=== PATIENT | male | born 1965 | race Caucasian/White ===

== ENCOUNTER 2018-06-21 07:09 | Day surgery (SDC) | payer BC ==
--- NOTE | 2018-06-20 10:04 | PCM.PREANE ---
<Shraddha Merino - Last Filed: 06/20/18 10:00> Preanesthetic Assessment - Anesthesia/Transfusion/Family Hx Anesthesia History: No Prior Anesthesia Family History of Anesthesia Reaction: No Transfusion History: No Prior Transfusion(s) Intubation History: Unknown - Review of Systems Other: Reports: None (Hemochromoatosis- last saw hematology and IM in 2014) - Physical Assessment NPO Status Date: 06/20/18 Vital Signs: Last Vital Signs Temp 98.1 F 06/21/18 07:15 Pulse 61 06/21/18 07:15 Resp 16 06/21/18 07:15 BP 141/78 H 06/21/18 07:15 Pulse Ox 96 06/21/18 07:15 Height: 5 ft 8 in Mental Status: Alert & Oriented x3 - Lab Values: Laboratory Last Values MRSA (PCR) Negative 06/14/18 12:51 All lab values reviewed and noted and within acceptable ranges to proceed with scheduled procedure. Elevated liver enzymes and elevated ferritin noted. - Imaging/EKG Impressions: CXR: negative EKG: - Anesthesia Plan Pre-Op Medication Ordered: None - Acknowledgements Anesthesia Type Planned: General Anesthesia Pt an Appropriate Candidate for the Planned Anesthesia: Yes Alternatives and Risks of Anesthesia Discussed w Pt/Guardian: Yes Pt/Guardian Understands and Agrees with Anesthesia Plan: Yes PreAnesthesia Questionnaire - CURRENT (IN HOUSE) MEDS Current Meds: Current Medications Lactated Ringer's (Ringers, Lactated) 1,000 mls @ 125 mls/hr IV ASDIRECTED JOSE ALFREDO Stop: 06/21/18 23:00 Last Admin: 06/21/18 07:56 Dose: 125 mls/hr Lidocaine/Sodium Bicarbonate (Buffered Lidocaine 1% In Ns 8.4%) 0.25 ml IDERM ONETIME PRN PRN Reason: Prior to IV Start Stop: 06/21/18 18:00 Last Admin: 06/21/18 07:56 Dose: 0.25 ml Sodium Chloride (Saline Flush) 10 ml FLUSH ASDIRECTED PRN PRN Reason: Keep Vein Open Stop: 06/21/18 18:00 Discontinued Medications Epinephrine HCl (Adrenalin) 3 mg .XX ONETIME ONE Stop: 06/21/18 08:01 Fentanyl (Sublimaze) Confirm Administered Dose 250 mcg .ROUTE .STK-MED ONE Stop: 06/21/18 06:32 Lidocaine HCl (Xylocaine-Mpf 1%) Confirm Administered Dose 4 ml .ROUTE .STK-MED ONE Stop: 06/21/18 06:32 Midazolam HCl (Versed 1 Mg/Ml) Confirm Administered Dose 2 mg .ROUTE .STK-MED ONE Stop: 06/21/18 06:32 Ondansetron HCl (Zofran) Confirm Administered Dose 4 mg .ROUTE .STK-MED ONE Stop: 06/21/18 06:32 Propofol (Diprivan 20 Ml) Confirm Administered Dose 200 mg .ROUTE .STK-MED ONE Stop: 06/21/18 06:32 <Hanna Gustafson M - Last Filed: 06/21/18 08:16> Preanesthetic Assessment - Procedure Proposed Procedure: right kva - Anesthesia/Transfusion/Family Hx Anesthesia History: No Prior Anesthesia Family History of Anesthesia Reaction: No Transfusion History: No Prior Transfusion(s) - Review of Systems General: No Symptoms Pulmonary: No Symptoms Cardiovascular: No Symptoms Gastrointestinal: No Symptoms Neurological: No Symptoms, Difficulty Walking (knee pain) Other: Reports: Liver Problems (high enzymes) - Physical Assessment NPO Status Time: 23:55 Pulse: 61 O2 Sat by Pulse Oximetry: 96 Respiratory Rate: 16 Blood Pressure: 141/78 Weight: 102 kg ASA Class: 2 Mental Status: Alert & Oriented x3 Airway Class: Mallampati = 1 Dentition: Reports: Normal Dentition Thyro-Mental Finger Breadths: 3 Mouth Opening Finger Breadths: 3 ROM/Head Extension: Full Lungs: Clear to Auscultation, Normal Respiratory Effort Cardiovascular: Regular Rate, Regular Rhythm - Imaging/EKG Impressions: EKG -SR rate 59- probable left atrial enlargement - Blood Blood Available: No - Anesthesia Plan Pre-Op Medication Ordered: None - Acknowledgements Anesthesia Type Planned: General Anesthesia Pt an Appropriate Candidate for the Planned Anesthesia: Yes Alternatives and Risks of Anesthesia Discussed w Pt/Guardian: Yes Pt/Guardian Understands and Agrees with Anesthesia Plan: Yes PreAnesthesia Questionnaire Cardiovascular History: Reports: None Respiratory History: Reports: None Gastrointestinal History: Reports: None Musculoskeletal History: Reports: None Neurological History: Reports: None Psychiatric History: Reports: None Hematologic History: Reports: Hemochromatosis Oncologic (Cancer) History: Reports: None - History Comment History Comment: [place]- over 2 weeks ago last one - SUBSTANCE USE Smoking Status *Q: Never Smoker Tobacco Use Within Last Twelve Months: No Second Hand Smoke Exposure: No Days Per Week of Alcohol Use: 1 (rare) Recreational Drug Use History: No
[~2018-06-21 07:09] MED LIST: Lactated Ringers 1,000 ML IV SCH; Lidocaine 1% PF 2 ML SDV ONE; Lidocaine 1%/Sod Bicarbonate in NS 8.4% 1 ML Syringe IDERM PRN; Midazolam 1 MG/ML 2 ML SDV ONE; Ondansetron 4 MG/2 ML SDV ONE; Propofol 200 MG/20 ML SDV ONE; Sodium Chloride 0.9% 10 ML Syringe FLUSH PRN; fentaNYL 250 MCG/5 ML SDV ONE
[2018-06-21] MEDS ORDERED: EPINEPHrine 1 MG/ML 30 ML MDV ONE (08:00)
[2018-06-21] MEDS ORDERED: Bupivacaine 0.25% 30 ML SDV ONE (08:11)
[2018-06-21] MEDS ORDERED: ceFAZolin 1 GM Vial ONE (08:18)
[2018-06-21] MEDS ORDERED: Dexamethasone 4 MG/ML 5 ML MDV ONE (08:29)
[2018-06-21] MEDS ORDERED: ePHEDrine/Normal Saline 25 MG/5 ML Syringe ONE (08:34)
[2018-06-21] MEDS ORDERED: Ondansetron 4 MG/2 ML SDV IVPUSH PRN (08:36)
[2018-06-21] MEDS ORDERED: fentaNYL 100 MCG/2 ML SDV IVPUSH PRN (08:36)
[2018-06-21] MEDS ORDERED: HYDROmorphone 0.5 MG/0.5 ML Syringe IVPUSH PRN (08:36)
[2018-06-21] MEDS ORDERED: Lactated Ringers 1,000 ML ONE (08:46)
--- NOTE | 2018-06-21 09:28 | PCM.POSTAN ---
POST ANESTHESIA ASSESSMENT - MENTAL STATUS Mental Status: Somnolent - VITAL SIGNS Pulse Rate: 69 SaO2: 94 Resp Rate: 14 Blood Pressure: 123/72 Temperature: 97.9 F - RESPIRATORY Respiratory Status: Respiratory Rate WNL, Airway Patent, O2 Saturation Stable, Supplemental Oxygen - CARDIOVASCULAR CV Status: Pulse Rate WNL, Blood Pressure Stable - GASTROINTESTINAL GI Status: No Symptoms - PAIN Pain Score: 0 (sleeping) - POST OP HYDRATION Hydration Status: Adequate & Stable
[2018-06-21] MEDS ORDERED: oxyCODONE 5 MG Tab PO PRN ×2 (09:45→10:10)
--- NOTE | 2018-06-21 10:05 | PCM48HPAN ---
Post Anesthesia Note - EVALUATION WITHIN 48HRS OF ANESTHETIC Vital Signs in Normal Range: Yes Patient Participated in Evaluation: Yes Respiratory Function Stable: Yes Airway Patent: Yes Cardiovascular Function Stable: Yes Hydration Status Stable: Yes Pain Control Satisfactory: Yes Nausea and Vomiting Control Satisfactory: Yes Mental Status Recovered: Yes (doing well-rests) Pulse Rate: 69 Resp Rate: 14 Temperature: 97.9 F Blood Pressure: 123/72
--- NOTE | 2018-06-25 06:49 | PCM.OPNOTE ---
- General Post-Op/Procedure Note Date of Surgery/Procedure: 06/21/18 Operative Procedure(s): right knee video arthroscopy partial medial meniscectomy Pre Op Diagnosis: right knee medial meniscus tear Post-Op Diagnosis: same Anesthesia Technique: General LMA, Local Primary Surgeon: James Bray Anesthesia Provider: Hanna Gustafson Well Driller: Sanna Sheppard in mLs: 5 Complications: None Condition: Good
--- NOTE | 2018-06-25 12:52 | OR ---
DATE OF OPERATION: 06/21/2018 SURGEON: James Bray MD OPERATION PERFORMED: Right knee video arthroscopy with partial medial meniscectomy. PREOPERATIVE DIAGNOSIS: Right knee medial meniscus tear. POSTOPERATIVE DIAGNOSIS: Right knee medial meniscus tear. ANESTHESIA: General LMA with local. ANESTHESIA PROVIDER: Hanna Gustafson CRNA. ASSISTANTS: Sanna Sheppard PA-C ESTIMATED BLOOD LOSS: 5 mL. COMPLICATIONS: MCL stretching. CONDITION: Stable. DESCRIPTION OF PROCEDURE: The patient was identified in the preoperative holding area. Proper site was marked and identified by the surgeon. The patient was taken back to the operating theater. After adequate anesthesia, the patient's left lower extremity was placed in a well leg nelson. Right lower extremity had a nonsterile tourniquet applied and was then placed in a C-clamp nelson. Right lower extremity was then sterilely prepped and draped in the usual sterile fashion. OR time-out was performed. The patient received 2 g of IV Ancef. At this time, right lower extremity was exsanguinated. Tourniquet was insufflated to 250 mmHg. Standard anterior lateral portal incision was made centered over the distal tip of the patella. At this time, scope trocar was introduced. 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 Attention was turned to the medial compartment. At this time, with the use of a spinal needle, anterior medial portal was created. The patient was noted to have a diffuse tear noted to the posterior third of the medial meniscus. At this time, I did do a full resection of the posterior third of the medial meniscus back to the capsular meniscal junction. At this time, the patient only had grade 1/2 chondromalacia changes of the medial tibial plateau. Otherwise, there was no full-thickness cartilage defects. At this time, ACL was found to be somewhat stretched and torn off in the notch, which was probably long-standing. Lateral compartment showed no chondromalacia changes. While performing the procedure, I did feel like the patient's medial collateral ligament was stretched although there was no full-thickness tear. I did range it after the surgery and did varus and valgus instability and there was no instability noted whatsoever, but I did place the patient in a hinged knee brace after sterile soft dressing was applied to help with stability and healing if there was stretching of the medial collateral ligament. At this time, the patient was sent to PACU in stable condition. CARMEL /[id number]
== END 2018-06-21 11:21 | disposition home or self-care (01) ==
LOC: JD.SDS 07:09
PROVIDERS: ATTEND Orthopaedic Surgery
DX: S83.241A Other tear of medial meniscus, current injury, right knee, initial encounter (principal); M22.41 Chondromalacia patellae, right knee; E83.119 Hemochromatosis, unspecified; Z79.899 Other long term (current) drug therapy; Z88.8 Allergy status to other drugs, medicaments and biological substances; X58.XXXA Exposure to other specified factors, initial encounter
CPT/HCPCS: 29881; 87641; A9270; J0171; J0690; J1100; J2001; J2250; J2405; J2704; J3010; J3490; J7050; J7120; 01400

== ENCOUNTER 2019-04-16 08:50 | Day surgery (SDC) | payer BC ==
--- NOTE | 2019-04-15 12:21 | PCM.PREANE ---
Preanesthetic Assessment - Anesthesia/Transfusion/Family Hx Anesthesia History: Prior Anesthesia Without Reaction Family History of Anesthesia Reaction: No Transfusion History: No Prior Transfusion(s) Intubation History: Unknown - Review of Systems General: No Symptoms Pulmonary: No Symptoms (DUDLEY-CPAP, ETOH: rarely) Cardiovascular: No Symptoms (HTN) Gastrointestinal: No Symptoms Neurological: No Symptoms Other: Reports: None (History of hemochromotosis: recently monitored and treated well. (Ferritin levels=30)), Liver Problems (History of elevated liver enzymes) - Physical Assessment NPO Status Date: 04/15/19 NPO Status Time: 04:30 Vital Signs: HR: BP: Sat: Resp: Temp: Height: 1.73 m Weight: 104 kg ASA Class: 2 Mental Status: Alert & Oriented x3 Airway Class: Mallampati = 2 Dentition: Reports: Normal Dentition, Caries Thyro-Mental Finger Breadths: 3 Mouth Opening Finger Breadths: 3 ROM/Head Extension: Full Lungs: Clear to Auscultation, Normal Respiratory Effort Cardiovascular: Regular Rate, Regular Rhythm, No Murmurs - Lab Values: All labs reviewed and noted and within acceptable ranges to proceed with procedure. - Imaging/EKG Impressions: EKG:SR rate=59, probable left atrial enlargement Echocardiogram: EF: 60-65%, mild concentric left ventricular hypertrophy - Allergies Allergies/Adverse Reactions: Allergies Allergy/AdvReac Type Severity Reaction Status Date / Time ibuprofen Allergy Nausea and Verified 04/15/19 13:54 Vomiting - Anesthesia Plan Pre-Op Medication Ordered: None - Acknowledgements Anesthesia Type Planned: MAC Pt an Appropriate Candidate for the Planned Anesthesia: Yes Alternatives and Risks of Anesthesia Discussed w Pt/Guardian: Yes Pt/Guardian Understands and Agrees with Anesthesia Plan: Yes PreAnesthesia Questionnaire HEENT History: Reports: Impaired Vision Cardiovascular History: Reports: None Respiratory History: Reports: None Gastrointestinal History: Reports: None Genitourinary History: Reports: None [employer]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 Musculoskeletal History: Reports: None Neurological History: Reports: None Psychiatric History: Reports: None Endocrine/Metabolic History: Reports: None Hematologic History: Reports: Hemochromatosis Other Hematologic History: hemachroamtosis Immunologic History: Reports: None Oncologic (Cancer) History: Reports: None Dermatologic History: Reports: None - Past Surgical History Head Surgeries/Procedures: Reports: None Cardiovascular Surgical History: Reports: None Respiratory Surgical History: Reports: None GI Surgical History: Reports: None Female Surgical History: Reports: None Male Surgical History: Reports: None Endocrine Surgical History: Reports: None Neurological Surgical History: Reports: None Musculoskeletal Surgical History: Reports: None Oncologic Surgical History: Reports: None Dermatological Surgical History: Reports: None - History Comment History Comment: [place]- over 2 weeks ago last one - HOME MEDS Home Medications: Home Meds Cholecalciferol (Vitamin D3) [Vitamin D3] 2,000 unit PO Q48H 04/15/19 [History] Losartan Potassium 100 mg PO DAILY 04/15/19 [History] Multivitamin [Daily Multiple Vitamin] 1 tab PO DAILY 04/15/19 [History] - CURRENT (IN HOUSE) MEDS Current Meds: Current Medications Lactated Ringer's (Ringers, Lactated) 1,000 mls @ 125 mls/hr IV ASDIRECTED JOSE ALFREDO Stop: 04/16/19 23:00 Lidocaine/Sodium Bicarbonate (Buffered Lidocaine 1% In Ns 8.4%) 0.25 ml IDERM ONETIME PRN PRN Reason: Prior to IV Start Stop: 04/16/19 23:00 Sodium Chloride (Saline Flush) 10 ml FLUSH ASDIRECTED PRN PRN Reason: Keep Vein Open Stop: 04/16/19 23:00
[~2019-04-16 08:50] MED LIST changes: +Lidocaine 1% 6 ML ONE; -Lidocaine 1% PF 2 ML SDV ONE; -Midazolam 1 MG/ML 2 ML SDV ONE; -Ondansetron 4 MG/2 ML SDV ONE; +fentaNYL 100 MCG/2 ML SDV ONE; -fentaNYL 250 MCG/5 ML SDV ONE
[2019-04-16] MEDS ORDERED: Lactated Ringers 1,000 ML ONE (11:10)
[2019-04-16] MEDS ORDERED: Propofol 200 MG/20 ML SDV ONE (11:38)
--- NOTE | 2019-04-16 12:24 | PCM.PRNOTE ---
- Free Text/Narrative Note: Date: 04/16/2019 Procedure: diagnostic colonoscopy Endoscopist: Jacek Dye MD Indication: positive FOBT Findings: excellent prep. Scattered diverticula. appendiceal orifice and IC valve visualized. Small sessile polyp noted in ascending colon; snare biopsied and retrieved for pathology. No significant hemorrhoidal disease. Detailed Report: The patient was brought to the endoscopy suite and placed in left lateral decubitus position. Timeout was performed. Monitored anesthesia care was initiated. Visual inspection of the anus was unremarkable. Digital rectal exam revealed no abnormality. The colonoscope was advanced all the way to the ileocecal valve. The prep was excellent. The appendiceal orifice and ileocecal valve were noted, and the colonoscope was slowly withdrawn and mucosal surfaces carefully inspected. In the mid ascending colon a subcentimeter sessile polyp was identified. This was snare biopsied, with the base cauterized. Specimen was successfully retrieved and sent for pathology. The remainder of the colon looked normal except for the presence of scattered diverticula. On retroflexion within the rectum, no significant hemorrhoidal disease or other pathology was noted. The patient tolerated the procedure well. Jacek Dye MD General Surgery
--- NOTE | 2019-04-16 12:41 | PCM48HPAN ---
Post Anesthesia Note - EVALUATION WITHIN 48HRS OF ANESTHETIC Vital Signs in Normal Range: Yes Patient Participated in Evaluation: Yes Respiratory Function Stable: Yes Airway Patent: Yes Cardiovascular Function Stable: Yes Hydration Status Stable: Yes Pain Control Satisfactory: Yes Nausea and Vomiting Control Satisfactory: Yes Mental Status Recovered: Yes Vital Signs: Last Vital Signs Temp 36.4 C 04/16/19 1224 Pulse 72 04/16/19 12:24 Resp 16 04/16/19 12:24 BP 126/92 H 04/16/19 12:24 Pulse Ox 95 04/16/19 12:24
== END 2019-04-16 12:53 | disposition home or self-care (01) ==
LOC: JD.SDS 08:50
PROVIDERS: ATTEND Surgery
DX: D12.2 Benign neoplasm of ascending colon (principal); K57.30 Diverticulosis of large intestine without perforation or abscess without bleeding; I10 Essential (primary) hypertension; E66.9 Obesity, unspecified; Z88.8 Allergy status to other drugs, medicaments and biological substances; Z68.36 Body mass index [BMI] 36.0-36.9, adult; Z79.899 Other long term (current) drug therapy
CPT/HCPCS: 45385; J2001; J2704; J3010; J7120; 00811